=== PATIENT | male | born 1955 | race Caucasian/White ===

== ENCOUNTER 2016-10-07 22:57 | Inpatient (IN) | payer MEDICARE ==
[~2016-10-07] VITALS: Ht 162.5 cm; Wt 120.2 kg
--- NOTE | ~2016-10-07 | CON ---
[place], [place] REPORT OF CONSULTATION NAME: [id number] UNIT #: [id number] ROOM: 311 DOCTOR: JOHN MOLUTON DPM BIRTHDATE: [birth year] DOS: 10/13/2016 PODIATRY CONSULT SUBJECTIVE: This patient is seen as consulted for care of elongated painful toenails on both feet. PAST MEDICAL HISTORY: Positive for normal pressure hydrocephalus, hypertension, hyperlipidemia, gastroesophageal reflux disease, anemia on dementia. ALLERGIES: The patient has no known drug allergies. CURRENT MEDICATIONS: Include Exelon, Namenda, vitamin D, Diovan, Zocor, Prilosec, Feosol, Norvasc, Depakote, Tylenol, and Ativan. OBJECTIVE: Upon lower extremity physical examination, DP pedal pulses are palpable and PT pedal pulses mildly decreased. Skin temperature is slightly cool to toes. CFT is 2 seconds to all digits. Sensation appears grossly intact and symmetrical. No paresthesias are noted. No signs of muscle atrophy. Muscle strength appears full without any deficits. Nails 1 through 5 bilaterally are thick, brittle, dystrophic, elongated, and discolored with subungual debris present. There borders of the great toenails are mildly incurvated with no signs of infection. There is tenderness noted to palpation to the nails. No open areas are seen bilaterally. Contracted lesser digits are seen with no pain to palpation. ASSESSMENT: Onychomycosis 1 through 5 bilaterally with pain. Hammertoe bilaterally. PLAN: Consult is performed. Manual debridement of mycotic nails 1 through 5 bilaterally in length and thickness to the level of the nail bed to reduce hazard such infection. Recommend palliative foot care every 9 weeks for the patient, possible removal of ingrown nails in the future if warranted. Thanks for the opportunity to take part in care of this patient. JOHN MOULTON DPM CM:CONSTR:REPORT OF CONSULTATION 1200 10/13/16 2339 interface
--- NOTE | ~2016-10-07 | PR ---
[place], [place] PROGRESS NOTE NAME: [facility]ÍAS [facility]OMEZ [facility] [id number] UNIT #: [id number] ROOM: 311 DOCTOR: TRAVIS DREW BIRTHDATE: [birth year] DOS: 10/19/2016 SUMMARY OF VISIT: The patient was assessed in the dining room where he was reclining in a Coreen chair, very tired this morning, did note from nursing that he is combative with some care, but the nighttime nurse was able to get him bathed and cleaned up. Should also be noted that the patient apparently has a shunt and we need to get this evaluated to find out if it is occluded. MENTAL STATUS: He is alert and oriented to person, place, and approximate time. Again, overall mood is euthymic. He does have of lability. No overt signs of auditory or visual hallucinations, delusions, paranoia, willem or hypomania. PLAN: I stopped his Depakote on the . He seems to be tolerating this for the most part. I have requested the nurses reach out to the hospitalist to see if there is a way that we could evaluate the patency of the shunt and see if this is contributing to some of the behaviors that were seen. I will go from there after I reviewed the recommendations. XIANG DREW CNP CM:PNTRANS [id number] TRAVIS DREW 10/19/16 1714 interface
--- NOTE | ~2016-10-07 | PR ---
[place], [place] PROGRESS NOTE NAME: JEREMÍAS GOMEZ UNIT #: [id number] ROOM: 311 DOCTOR: PRECIOUS GALAVIZ MD BIRTHDATE: [birth year] DOS: 10/20/2016 CHIEF COMPLAINT: "Morning there tapan." SUMMARY OF THE VISIT: The patient was interviewed in the dining area where he sat in a Coreen chair waiting for breakfast. He was very bright and gregarious. Nurses report, however, a flareup in his sexual inappropriate behavior. He had been making lewd and sexual comments over the weekend and then this morning had grabbed his penis and shook it around asking the ladies if they wanted anything. He did redirect when a firm redirection was attempted. MENTAL STATUS: He remains alert and oriented to self. It is unclear if he realizes he is in the hospital. He is certainly not oriented to time. Mood still seems somewhat labile at times, but more redirectable. He is impulsive and sexually inappropriate. There are no gross psychotic symptoms noted. Short term memory is exceedingly poor. PLAN: I will start Celexa 20 mg in the morning to decrease libido. Continue to monitor and support, engage in individual and ordoñez milieu activity, returning to his long-term care facility when stable. PRECIOUS GALAVIZ MD CM:PNTRANS [id number] PRECIOUS GALAVIZ MD 10/20/16 1124 interface
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
--- NOTE | ~2016-10-07 | PR ---
[place], [place] PROGRESS NOTE NAME: [id number] UNIT #: [id number] ROOM: 315 DOCTOR: PRECIOUS GALAVIZ MD BIRTHDATE: [birth year] DOS: 10/13/2016 CHIEF COMPLAINT: "Hey, tapan, how are you." SUMMARY OF THE VISIT: The patient was interviewed as he rested in bed. He awoke easily and continued to be very jovial. He does still seem to be responding to unforeseen others and nurses report that he was talking in asleep, perhaps talking to unforeseen others. He continues to exhibit a trend toward improvement, but still has episodes of extreme mood lability. MENTAL STATUS: He is alert and oriented to person, possibly place, certainly not to time. Mood still is labile. Affect at times is inappropriate. There are no symptoms of willem or hypomania. There is a presence of auditory hallucinations that he responds to. Short-term memory is poor. Otherwise, he is relatively intact. PLAN: I will increase the Vraylar from 1.5 mg at bedtime to 3 mg at bedtime targeting the mood lability as well as the auditory hallucinations. We will engage in individual and ordoñez milieu activity with the ultimate plan to return to his long-term care facility when psychiatrically stable. PRECIOUS GALAVIZ MD CM:PNTRANS 0829 1031 PRECIOUS GALAVIZ MD 10/13/16 1032 interface
--- NOTE | ~2016-10-07 | PR ---
[place], [place] PROGRESS NOTE NAME[id number] UNIT #: [id number] ROOM: 311 DOCTOR: TRAVIS DREW BIRTHDATE: [birth year] DOS: 10/18/2016 CHIEF COMPLAINT: "Good morning." SUMMARY OF VISIT: The patient was significantly more alert and oriented this morning. He was in Coreen chair being fed breakfast by a ordoñez milieu. No voiced complaints from staff other than they do feel that he is much more alert and oriented. MENTAL STATUS: Alert and oriented to person, place, approximate time. Mood euthymic. Affect is appropriate. There are no overt signs of auditory or visual hallucinations, delusions, paranoia, willem or hypomania. PLAN: We stopped his Depakote yesterday. He seems to have rallied. We will continue to monitor over the next 24 hours to see if any behaviors, aggression, mood lability or impulsivity increased due to pulling away on the Depakote and then we will get a plan for him from there. XIANG DREW CNP CM:PNTRANS [id number] TRAVIS DREW 10/18/16 1853 interface
--- NOTE | ~2016-10-07 | PR ---
[place], [place] PROGRESS NOTE [id number] UNIT #: [id number] ROOM: 311 DOCTOR: TRAVIS DREW BIRTHDATE: [birth year] DOS: 10/16/2016 CHIEF COMPLAINT: The patient was sleeping in bed. SUMMARY OF THE VISIT: The patient was assessed in his bed where he was sleeping soundly. I can only get him to mumble good morning after several attempts to wake him up. MENTAL STATUS EXAMINATION: Alert and oriented to person, place, I do not know about time. Mood is fairly euthymic. Affect appropriate. The patient still needs motivation to do for himself. Did review his labs that I ordered yesterday. His white count has come back down, a little bit of anemia seen. Sodium is elevated, BUN and creatinine are up. We will encourage fluids, engage in individual and ordoñez milieu therapy with the plan to discharge when stable. XIANG DREW CNP CM:PNTRANS 0827 0053 TRAVIS DREW 10/17/16 0251 interface
--- NOTE | ~2016-10-07 | PR ---
[place], [place] PROGRESS NOTE NAME: [facility]AS [facility]Z [facility] [id number] UNIT #: [id number] ROOM: 315 DOCTOR: PRECIOUS GALAVIZ MD BIRTHDATE: [birth year] DOS: 10/12/2016 CHIEF COMPLAINT: "Carlos phelan, you do know he is going to [place]." SUMMARY OF THE VISIT: The patient was interviewed in the dining area where he was sitting with a male peer engaging in superficial and at times inappropriate conversation. As I approached, he once again very jovially said carlos phelan. He pointed to the peer that he was talking to and stated did you know that he was going to [place]. He then began a long string of laughing hysterically, seem to be responding to unforeseen others in his constant laughing, was making comments that made no sense to the situation at hand. He was not agitated, however, or aggressive in anyway. MENTAL STATUS: He remains alert and oriented to self only. He could not tell me where he was at or how long he has been here. He was pleasant, but very labile and inappropriate. There does seem to be the presence of significant auditory hallucinations. Memory is extremely poor. PLAN: I will maintain the Depakote at 500 mg t.i.d. as the level is therapeutic at 87.1. He does seem to be more manic and psychotic at this time, so I will discontinue the Celexa and start Vraylar 1.5 mg at bedtime. This should decrease his psychosis as well as improving cognition and decreasing anxiety. We will monitor and support returning to the long-term care when stable. PRECIOUS GALAVIZ MD CM:PNTRANS 1035 1644 PRECIOUS GALAVIZ MD 10/12/16 1645 interface
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
--- NOTE | ~2016-10-07 | PR ---
[place], [place] PROGRESS NOTE NAME: JEREMÍAS GOMEZ UNIT #: [id number] ROOM: 311 DOCTOR: TRAVIS DREW BIRTHDATE: [birth year] DOS: 10/15/2016 CHIEF COMPLAINT: "Morning." SUMMARY OF VISIT: The patient was assessed in the dining room, minimal interactions with me. Staff notes that the patient just seems not himself. MENTAL STATUS: He is alert and oriented to self. I do not know if he knows where he is at. Mood is euthymic. Affect is more appropriate, but again he does seem just a little bit off. We had adjusted some of his medications yesterday. It should be noted, though I looked at his yesterday's labs, I have gone ahead and ordered more labs today, but his white count jumped up from 8.2-12.2. His BUN and creatinine continues to climb. His urine showed some traces of possible UA, and we are checking a valproic acid level this morning, so there may be some infection or something medical going on with this gentleman. I am not going to adjust any of his psych meds until we get the rest of the labs back, and we will try to encourage fluids and go from there. XIANG DREW CNP CM:PNTRANS 0833 0036 TRAVIS DREW 10/16/16 0036 interface
--- NOTE | ~2016-10-07 | PR ---
[place], [place] PROGRESS NOTE NAME: J[facility]ÍAS GOMEZ [facility] [id number] UNIT #: [id number] ROOM: 315 DOCTOR: TRAVIS DREW BIRTHDATE: [birth year] DOS: 10/09/2016 CHIEF COMPLAINT: "Good morning." SUMMARY OF VISIT: The patient was assessed in his room where he was lying in bed flat. He engaged in conversation, really 1 or 2 word answers or he mimic what I said, almost like he was trying to compensate and make it seem like he understood what I was asking him even though I do not know that he did by his mimicry. There are no overt signs of auditory or visual hallucinations. No willem or hypomania. No signs of delusions or paranoia, but exceptionally poor memory. PLAN: Dr. Diego started him on Depakote yesterday t.i.d. and switch out his Aricept for his Exelon and augmented with Namenda. I am going to leave his medications as is right now. He did not require any PRNs. Let me see how he acclimates over the next 24 hours. He does not seem as bad as he was yesterday. There is some slight improvement, but I want to give the medications a chance to work in his system since he had three medication changes yesterday. I want to give this time to see what he is going look like. We will try to engage in individual and ordoñez milieu therapy and plan on discharging down the road when he is stable. XIANG DREW CNP CM:PNTRANS 0800 13 TRAVIS DREW 10/09/16 2315 interface
--- NOTE | ~2016-10-07 | PR ---
[place], [place] PROGRESS NOTE NAME: [id number] UNIT #: [id number] ROOM: 315 DOCTOR: PRECIOUS GALAVIZ MD BIRTHDATE: [birth year] DOS: 10/11/2016 INTERVAL NOTE CHIEF COMPLAINT: "Good morning, how are you tapan." SUMMARY OF THE VISIT: The patient was interviewed as he rested in his bed. He voiced no complaints, stating that he slept well and ate well. He could not tell me where he was nor could he tell me how long he has been here or what he had for breakfast. Nurses report continued mood lability, worse at sometimes with exit seeking behavior and inappropriate sexual comments. MENTAL STATUS: He is alert and oriented to person, possibly place, but not time. Mood still seems to be labile. Affect still is inappropriate at times. He does seem to be responding to unforeseen others, although he denies this. Short term memory remains exceedingly poor. PLAN: His valproic acid is therapeutic at 87.1, so I will continue the Depakote at its current dose. I will increase Celexa from 10 mg in the morning to 20 mg in the morning in an effort to decrease the sexual behavior, may need to add an antipsychotic drug later to decrease mood lability and psychosis. We will support and monitor and engage in individual and ordoñez milieu activity. PRECIOUS GALAVIZ MD CM:PNTRANS 1025 2347 PRECIOUS GALAVIZ MD 10/11/16 2348 interface
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
--- NOTE | ~2016-10-07 | PR ---
[place], [place] PROGRESS NOTE NAME: J[facility]ÍAS GOMEZ [facility] [id number] UNIT #: [id number] ROOM: 311 DOCTOR: TRAVIS DREW BIRTHDATE: [birth year] DOS: 10/17/2016 CHIEF COMPLAINT: "Good morning." SUMMARY OF VISIT: The patient was assessed in the dining room where he was in a Coreen chair. He is quite sedated. Nursing brought this to my attention this morning and stated that they struggled with him yesterday as well, seeming sedate, sleeping all the time, not able to get out of bed. MENTAL STATUS: He is alert and oriented to person, place. Again with the sedation, it is hard to get a full assessment on him. Denying any auditory or visual hallucinations. PLAN: Completely discontinuing his Depakote, we will skip this out of his system to see if he wakes up. I am not going to touch any of his other medications at this point in time. Goal is to get him a little bit more energetic, engaging less sedation, and still able to keep his mood lability under control. XIANG DREW CNP CM:PNTRANS 0758 0143 TRAVIS DREW 10/18/16 0144 interface
--- NOTE | ~2016-10-07 | PR ---
[place], [place] PROGRESS NOTE NAME[id number] UNIT #: [id number] ROOM: 311 DOCTOR: PRECIOUS GALAVIZ MD BIRTHDATE: [birth year] DOS: 10/14/2016 INTERVAL NOTE CHIEF COMPLAINT: "Morning tapan, is it time for breakfast." SUMMARY OF THE VISIT: The patient was interviewed as he rested quietly in bed. As I approached, he was very jovial as he usually is. Greeted me with a "Hey tapan, how is it going." He seemed to be more appropriate and he was much more goal directed in his thinking. He did not have any of the inappropriate laughing that he had several days ago and does seem to be trending toward improvement. I see no somnolence or other side effects from the medicines themselves. MENTAL STATUS: He is alert and oriented to self, uncertain if he realizes he is in the hospital and he is certainly not oriented to time. Mood does seem to be trending towards euthymia and affect is more appropriate. His speech rate and pattern is more appropriate and goal directed. There is no hypomania or willem and the psychotic symptoms seem to be abating. Short term memory is exceptionally poor. PLAN: I will go ahead and increase his Vraylar from 3 mg at bedtime to 4.5 mg at bedtime. Support and monitor. We will plan to discharge then to his long-term care facility when psychiatrically stable. PRECIOUS GALAVIZ MD CM:PNTRANS [id number] PRECIOUS GALAVIZ MD 10/15/16 0207 interface
[2016-10-07] MEDS ORDERED: AZOR 10-40 MG1 EACH PO (23:16)
[2016-10-07] MEDS ORDERED: ARICEPT10 M1 PO (23:16)
[2016-10-07] MEDS ORDERED: HYDR12.5C PO (23:19)
[2016-10-07] MEDS ORDERED: FERROUS SULFAT325 MG PO (23:23)
[2016-10-07] MEDS ORDERED: LOVASTATIN20 MG PO (23:24)
[2016-10-07] MEDS ORDERED: OMEPRAZOLE D/R20 MG PO (23:25)
[2016-10-07] MEDS ORDERED: VITAMIN B121000 MC1 PO (23:26)
[2016-10-07] MEDS ORDERED: NAMENDA-5 PO (23:26)
[2016-10-07] MEDS ORDERED: NAMENDA10 MG PO (23:27)
[2016-10-07] MEDS ORDERED: NYSTOP100000 U/G T (23:28)
[2016-10-07] MEDS ORDERED: MOM30 M1 PO (23:29)
[2016-10-07] MEDS ORDERED: FLEET MINERAL133 ML PO (23:30)
[2016-10-08 01:59] VITALS: BP 125/62
[2016-10-08 07:11] LABS: BASO % 0.3 % (0.0-1.0); EOS # 0.3 10*3/uL (0.0-0.4); EOS % 3.1 % (1.0-4.0); HEMATOCRIT 40.5 % (42.0-52.0); HEMOGLOBIN 12.7 g/dl (14.0-18.0); LYMPH # 1.7 10*3/uL (1.3-4.4); MEAN CELL VOLUME 77.7 fl (80.0-94.0); MEAN CORPUSCULAR HGB 24.4 pg (27.0-31.0); MEAN CORPUSCULAR HGB CONC 31.4 g/dl (33.0-37.0); MEAN PLATELET VOLUME 10.8 fl (9.6-12.3); MONO # 0.7 10*3/uL (0.1-1.0); MONO % 7.9 % (3.0-9.0); NEUT # 6.2 10*3/uL (2.3-7.9); NEUT % 69.4 % (47.0-73.0); PLATELET COUNT AUTOMATED 198 10*3/uL (130-400); RED BLOOD COUNT 5.21 10*6/uL (4.50-5.90); RED CELL DISTRI WIDTH 16.8 % (0-14.5)
[2016-10-08 07:26] LABS: CHOLESTEROL 159 mg/dL (<200); HDL CHOLESTEROL 38 mg/dl (40-60); LDL CHOLESTEROL 85 mg/dL (9-159); TRIGLYCERIDES 180 mg/dl (<150); VLDL CHOLESTEROL 36 mg/dL (6-40)
[2016-10-08 07:27] LABS: ALBUMIN 3.2 gm/dl (3.1-4.5); BILIRUBIN, TOTAL 0.8 mg/dl (0.2-1.0); POTASSIUM 4.2 mmol/L (3.5-5.1); TOTAL PROTEIN 6.9 gm/dL (6.4-8.2)
[2016-10-08 07:36] LABS: HEMOGLOBIN A1c 6.1 % (4.8-5.6)
[2016-10-08 07:41] VITALS: BP 115/60
[2016-10-08 20:00] VITALS: BP 118/58
[2016-10-09 07:15] LABS: BASO % 0.4 % (0.0-1.0); EOS # 0.2 10*3/uL (0.0-0.4); EOS % 2.3 % (1.0-4.0); HEMOGLOBIN 13.1 g/dl (14.0-18.0); LYMPH # 1.5 10*3/uL (1.3-4.4); LYMPH % 18.6 % (27.0-41.0); MEAN CELL VOLUME 78.4 fl (80.0-94.0); MEAN CORPUSCULAR HGB 24.4 pg (27.0-31.0); MEAN CORPUSCULAR HGB CONC 31.2 g/dl (33.0-37.0); MEAN PLATELET VOLUME 10.3 fl (9.6-12.3); MONO # 0.5 10*3/uL (0.1-1.0); MONO % 6.4 % (3.0-9.0); NEUT # 5.9 10*3/uL (2.3-7.9); NEUT % 71.9 % (47.0-73.0); PLATELET COUNT AUTOMATED 203 10*3/uL (130-400); RED BLOOD COUNT 5.36 10*6/uL (4.50-5.90); RED CELL DISTRI WIDTH 16.6 % (0-14.5); WHITE BLOOD COUNT 8.2 10*3/uL (4.8-10.8)
[2016-10-09 07:44] LABS: ALBUMIN 3.1 gm/dl (3.1-4.5); ALKALINE PHOSPHATASE 91 U/L (45-117); BILIRUBIN, TOTAL 0.5 mg/dl (0.2-1.0); BUN 30 mg/dl (7-24); CARBON DIOXIDE 26 mmol/L (21-32); CHLORIDE 109 mmol/L (98-107); EST GLOM FILT AFRICAN AMERICAN > 60 ml/min; GLUCOSE 111 mg/dL (65-99); POTASSIUM 4.3 mmol/L (3.5-5.1); SGOT/AST 18 IU/L (3-35); SGPT/ALT 21 U/L (12-78); SODIUM 140 mmol/L (136-145)
[2016-10-09 07:50] LABS: THYROID STIM HORMONE (HS) 0.987 uIU/ml (0.358-4.75)
[2016-10-09 08:00] VITALS: BP 115/60
[2016-10-09 08:09] LABS: VITAMIN D, 25-HYDROXY 22.8 ng/mL (30-100)
[2016-10-09 09:57] VITALS: BP 120/56
[2016-10-09 20:00] VITALS: BP 107/72
[2016-10-10 07:37] VITALS: BP 121/60
[2016-10-10 20:05] VITALS: BP 110/60
[2016-10-11 07:47] VITALS: BP 113/76
[2016-10-12 08:09] VITALS: BP 107/60
[2016-10-12 20:18] VITALS: BP 97/75
[2016-10-13 07:52] VITALS: BP 123/58
[2016-10-13 20:42] VITALS: BP 98/82
[2016-10-14 09:47] VITALS: BP 115/65
[2016-10-14 17:39] LABS: HEMATOCRIT 46.6 % (42.0-52.0); HEMOGLOBIN 14.3 g/dl (14.0-18.0); MEAN CELL VOLUME 78.8 fl (80.0-94.0); MEAN CORPUSCULAR HGB 24.2 pg (27.0-31.0); MEAN CORPUSCULAR HGB CONC 30.7 g/dl (33.0-37.0); MEAN PLATELET VOLUME 11.1 fl (9.6-12.3); PLATELET COUNT AUTOMATED 257 10*3/uL (130-400); RED BLOOD COUNT 5.91 10*6/uL (4.50-5.90); RED CELL DISTRI WIDTH 17.5 % (0-14.5); WHITE BLOOD COUNT 12.2 10*3/uL (4.8-10.8)
[2016-10-14 18:01] LABS: ALBUMIN 3.6 gm/dl (3.1-4.5); BILIRUBIN, TOTAL 0.5 mg/dl (0.2-1.0); POTASSIUM 4.1 mmol/L (3.5-5.1); TOTAL PROTEIN 8.3 gm/dL (6.4-8.2)
[2016-10-14 18:08] LABS: EOSINOPHIL # 0.1 10*3/uL (0-0.4); EOSINOPHILS 1 % (1-4); LYMPHOCYTE # 0.4 10*3/uL (1.3-4.4); METAMYELOCYTES 1 % (0-0); MICROCYTOSIS SLIGHT; MONOCYTE # 0.9 10*3/uL (0.1-1.0); NEUTROPHIL # 10.7 10*3/uL (2.3-7.9); NEUTROPHILS 88 % (47-73); PLATELET SUFFICIENCY NORMAL (NORMAL); TOTAL CELLS COUNTED 100 #CELLS
[2016-10-14 20:35] VITALS: BP 100/45
[2016-10-14 21:57] LABS: BILIRUBIN 1+ (NEGATIVE); BLOOD TRACE-INTACT (NEGATIVE); CLARITY SL CLOUDY (CLEAR); COLOR YELLOW (YELLOW); GLUCOSE NEGATIVE (NEGATIVE); KETONE 1+ (NEGATIVE); LEUKO ESTERASE NEGATIVE (NEGATIVE); NITRITE NEGATIVE (NEGATIVE); PROTEIN TRACE (NEGATIVE); SPECIFIC GRAVITY >= 1.030 (1.005-1.030); UROBILINOGEN 0.2 E.U./dl (0.2-1.0)
[2016-10-14 22:00] VITALS: BP 118/68
[2016-10-14 22:15] LABS: MUCOUS 2+; WBC 0-2 wbc/hpf (0-5)
[2016-10-14 22:16] LABS: URINE REFLEX COMMENT NO (NO)
[2016-10-15 07:51] VITALS: BP 112/62
[2016-10-15 08:45] LABS: BASO % 0.3 % (0.0-1.0); EOS # 0.1 10*3/uL (0.0-0.4); EOS % 0.9 % (1.0-4.0); HEMATOCRIT 41.6 % (42.0-52.0); HEMOGLOBIN 12.8 g/dl (14.0-18.0); IG # 0.1 10*3/uL (0.0-0.1); LYMPH # 1.1 10*3/uL (1.3-4.4); LYMPH % 14.6 % (27.0-41.0); MEAN CELL VOLUME 78.8 fl (80.0-94.0); MEAN CORPUSCULAR HGB 24.2 pg (27.0-31.0); MEAN CORPUSCULAR HGB CONC 30.8 g/dl (33.0-37.0); MEAN PLATELET VOLUME 11.1 fl (9.6-12.3); MONO # 0.5 10*3/uL (0.1-1.0); MONO % 6.9 % (3.0-9.0); NEUT % 76.5 % (47.0-73.0); PLATELET COUNT AUTOMATED 205 10*3/uL (130-400); RED BLOOD COUNT 5.28 10*6/uL (4.50-5.90); RED CELL DISTRI WIDTH 17.1 % (0-14.5); WHITE BLOOD COUNT 7.8 10*3/uL (4.8-10.8)
[2016-10-15 09:08] LABS: ALBUMIN 3.1 gm/dl (3.1-4.5); ALKALINE PHOSPHATASE 85 U/L (45-117); BILIRUBIN, TOTAL 0.4 mg/dl (0.2-1.0); BUN 35 mg/dl (7-24); CARBON DIOXIDE 30 mmol/L (21-32); CHLORIDE 107 mmol/L (98-107); EST GLOM FILT AFRICAN AMERICAN > 60 ml/min; GLUCOSE 87 mg/dL (65-99); POTASSIUM 3.7 mmol/L (3.5-5.1); SGOT/AST 40 IU/L (3-35); SGPT/ALT 19 U/L (12-78); SODIUM 146 mmol/L (136-145); TOTAL PROTEIN 7.1 gm/dL (6.4-8.2)
[2016-10-15 20:00] VITALS: BP 103/40
[2016-10-16 07:45] VITALS: BP 119/64
[2016-10-16 20:04] VITALS: BP 102/81
[2016-10-17 07:55] VITALS: BP 108/55; BP 118/62
[2016-10-17 19:39] VITALS: BP 119/61
[2016-10-18 07:33] VITALS: BP 127/64
[2016-10-18 07:34] VITALS: BP 114/71
[2016-10-18 19:52] VITALS: BP 116/65
[2016-10-19 07:42] VITALS: BP 122/63
[2016-10-19 21:06] VITALS: BP 99/57
[2016-10-20 07:40] VITALS: BP 119/75
[2016-10-20 20:20] VITALS: BP 106/90
[2016-10-21] MEDS ORDERED: D-1000 185 MG-11 TAB PO (07:53)
[2016-10-21] MEDS ORDERED: MEMANTINE HCL10 MG PO (07:53)
[2016-10-21] MEDS ORDERED: CITALOPRAM HYDR20 MG PO (07:53)
[2016-10-21] MEDS ORDERED: VRAYLAR3 MG PO (07:53)
[2016-10-21] MEDS ORDERED: EXELON13.3 MG/21 T (07:53)
[2016-10-21 08:18] VITALS: BP 122/68
== END 2016-10-21 11:09 | disposition other institution (70) | DRG 885 ==
LOC: 3N 22:57
PROVIDERS: Internal Medicine; Psychiatry & Neurology Psychiatry; Student in an Organized Health Care Education/Training Program
DX: F33.3 Major depressive disorder, recurrent, severe with psychotic symptoms (principal); G91.2 (Idiopathic) normal pressure hydrocephalus; F03.91 Unspecified dementia, unspecified severity, with behavioral disturbance; I10 Essential (primary) hypertension; D64.9 Anemia, unspecified; B35.1 Tinea unguium; F23 Brief psychotic disorder; E78.5 Hyperlipidemia, unspecified; K21.9 Gastro-esophageal reflux disease without esophagitis; F63.81 Intermittent explosive disorder; F19.90 Other psychoactive substance use, unspecified, uncomplicated; F17.210 Nicotine dependence, cigarettes, uncomplicated; M20.42 Other hammer toe(s) (acquired), left foot; M20.41 Other hammer toe(s) (acquired), right foot; Z98.2 Presence of cerebrospinal fluid drainage device; Z72.89 Other problems related to lifestyle